=== PATIENT | male | born 1990 | race American Indian/Alaskan Native ===

== ENCOUNTER 2017-03-29 09:23 | Emergency (ER) | payer BC ==
[2017-03-29 09:33] VITALS: BP 140/91
[2017-03-29] MEDS ORDERED: MOTRIN PO ONE (10:40)
[2017-03-29] MEDS ORDERED: AUGMENTIN 875 MG PO ONE (11:24)
[2017-03-29] MEDS ORDERED: TRIPLE ANTIBIOTIC TP ONE (11:24)
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
== END 2017-03-29 11:58 | disposition home or self-care (01) ==
LOC: ED 09:23
DX: S61.452A Open bite of left hand, initial encounter (principal); S61.412A Laceration without foreign body of left hand, initial encounter; Y04.1XXA Assault by human bite, initial encounter; Y93.89 Activity, other specified; Y99.8 Other external cause status; Y92.89 Other specified places as the place of occurrence of the external cause
CPT/HCPCS: 99283; A6250

== ENCOUNTER 2019-10-02 16:10 | Emergency (ER) | payer SELFPAY ==
[2019-10-02 16:16] VITALS: BP 136/78
--- NOTE | 2019-10-02 16:58 | Event Note ---
ED Screening Note Date of service: 10/02/19 Time: 16:58 ED Screening Note: 29 yo male presents for std concerns He denies any other symptoms such as fever,penile or scrotum pain This initial assessment/diagnostic orders/clinical plan/treatment(s) is/are subject to change based on patients health status, clinical progression and re- assessment by fellow clinical providers in the ED. Further treatment and workup at subsequent clinical providers discretion. Patient/guardian urged not to elope from the ED as their condition may be serious if not clinically assessed and managed. Initial orders include: Follow up with [facility] discussed with pt to get tested and treated
== END 2019-10-02 17:30 | disposition left against medical advice (07) ==
LOC: ED 16:10
DX: R30.0 Dysuria (principal); Z53.21 Procedure and treatment not carried out due to patient leaving prior to being seen by health care provider